=== PATIENT | male | born 1975 | race Caucasian/White ===

== ENCOUNTER 2021-12-15 15:26 | Inpatient (IN) | payer MEDICAID ==
[~2021-12-15] VITALS: Ht 175.3 cm; Wt 121.1 kg
--- NOTE | 2021-12-15 15:45 | NUR ---
DR GARCIA AT BEDSIDE FOR EVAL
--- NOTE | 2021-12-15 15:58 | NUR ---
COVID SWAB COLLECTED AND SENT TO LAB
[2021-12-15] MEDS ORDERED: IV NS 0.9% 1,000 ML BAG IV ONE (16:00)
[2021-12-15] MEDS ORDERED: VANCOMYCIN 1 GM in IV D5W 250 ML IV ONE (16:00)
[2021-12-15] MEDS ORDERED: PIPERACILLIN /TAZOBACTAM 3.375 G in IV D5W 50 ML IV ONE (16:00)
--- NOTE | 2021-12-15 16:00 | NUR ---
IV LINE ESTABLISHED ON LAC #20, BLOOD DRAWN AND SENT TO LAB
[2021-12-15 16:22] LABS: BASOPHILS # (AUTO) 0.1 K/uL (0.0-0.2); BASOPHILS % (AUTO) 0.4 % (0.0-2.0); EOSINOPHILS % (AUTO) 0.2 % (0.0-6.0); HEMATOCRIT 36 % (39-51); HEMOGLOBIN 12.1 g/dL (13.5-17.5); LYMPHOCYTES % (AUTO) 10.6 % (20.0-44.0); MEAN CORPUSCULAR HGB CONC 33 g/dl (31.0-36.0); MEAN CORPUSCULAR VOLUME 87 fL (80-96); MONOCYTES # (AUTO) 1.6 K/uL (0.1-1.30); MONOCYTES % (AUTO) 8.2 % (2.0-12.0); NEUTROPHILS # (AUTO) 15.4 K/uL (1.8-8.9); NEUTROPHILS % (AUTO) 80.6 % (43.0-81.0); PLATELET COUNT (AUTO) 315 K/uL (150-450); RED BLOOD CELL COUNT(AUTO) 4.17 MIL/uL (4.5-6.0); WHITE BLOOD COUNT (AUTO) 19.1 K/uL (4.3-11.0)
[2021-12-15] MEDS ORDERED: IOHEXOL-300 100 ML VIAL IV ONE (16:23)
[2021-12-15] MEDS ORDERED: IV NS 0.9% 250 ML IV ONE (16:23)
--- NOTE | 2021-12-15 16:32 | NUR ---
PT TAKEN TO RADIOLOGY
[2021-12-15 16:33] LABS: CALCIUM, SERUM 8.9 mg/dL (8.5-10.1); CREATININE 1.3 mg/dL (0.6-1.3); POTASSIUM 3.1 mmol/L (3.5-5.1)
[2021-12-15 16:39] LABS: ALBUMIN 3.2 g/dL (3.4-5.0); BILIRUBIN,DIRECT 0.3 mg/dL (0.0-0.2); TOTAL PROTEIN, SERUM 8.6 g/dL (6.4-8.2)
--- NOTE | 2021-12-15 16:49 | NUR ---
CALLED [facility], PAGED ROBERT BLANTON FOR ADMISSION
--- NOTE | 2021-12-15 18:26 | NUR ---
PT REPORT GIVEN TO BIBIANA GARNER
[2021-12-15] MEDS ORDERED: Z GUARD REMEDY 4 OZ OINT TP PRN (19:30)
[2021-12-15] MEDS ORDERED: ACETAMINOPHEN 325 MG TABLET PO PRN (19:30)
[2021-12-15] MEDS ORDERED: POTASSIUM CHLORIDE 20 MEQ TAB.PRT.SR PO ONE (19:30)
[2021-12-15] MEDS ORDERED: MORPHINE SULFATE INJ 4 MG/ML DISP.SYRIN IV PRN (19:30)
[2021-12-15] MEDS ORDERED: ONDANSETRON HCL/PF 4 MG/2 ML VIAL IVP PRN (19:30)
--- NOTE | 2021-12-15 19:30 | NUR ---
ADMISSION NOTES PT ARRIVED ON UNIT AT APPROXIMATELY 1930. AOx4, ABLE TO MAKE NEEDS KNOWN. ON RA AND TOLERATING WELL. NO SOB NOTED. NO S/SX OF RESPIRATORY DISTRESS NOTED. IV ACCESS IN LAC #20G RUNNING NS @ 75 ML/HR. PICTURE TAKEN OF RIGHT BUTTOCK. SAFETY PRECAUTIONS IN PLACE: BED IN LOWEST, LOCKED POSITION, SIDERAILS UP x2, AND BRAKES ON. TABLE AND CALL LIGHT WITHIN REACH. ALL NEEDS MET AT THIS TIME.
[2021-12-15] MEDS: IV NS 0.9% 1,000 ML IV PRN (19:59)
[2021-12-15 20:00] VITALS: BP 124/74
[2021-12-15] MEDS ORDERED: VANCOMYCIN HCL 0.75 GM in IV D5W 250 ML IV ONE (20:00)
--- NOTE | 2021-12-15 23:00 | NUR ---
RN NOTES GIRLFRIEND ARRIVED AND WAS CONCERNED THAT PT WAS "LOOPY." PT CONTINUES TO HAVE EPISODES OF CONFUSION AND FORGETFULNESS. PT ALSO PACES IN ROOM. WHEN ASKED IF PATIENT WAS ANXIOUS HE SAID "YES BUT I DO NOT WANT MEDICATION." CHARGE NURSE, ROMEO, MADE AWARE.
[2021-12-15] MEDS: PIPERACILLIN /TAZOBACTAM 3.375 G in IV D5W 50 ML IV SCH (23:51)
[2021-12-16] MEDS: PIPERACILLIN /TAZOBACTAM 3.375 G in IV D5W 50 ML IV SCH ×3 (05:40→17:11)
--- NOTE | 2021-12-16 06:10 | NUR ---
RN NOTES PATIENT SEEN PACING THROUGHOUT HALLWAYS. FORGETFUL.
[2021-12-16 06:53] LABS: BASOPHILS % (AUTO) 0.2 % (0.0-2.0); EOSINOPHILS % (AUTO) 0.6 % (0.0-6.0); HEMATOCRIT 35 % (39-51); HEMOGLOBIN 11.8 g/dL (13.5-17.5); LYMPHOCYTES # (AUTO) 1.7 K/uL (0.8-4.8); LYMPHOCYTES % (AUTO) 12.7 % (20.0-44.0); MEAN CORPUSCULAR HGB CONC 34 g/dl (31.0-36.0); MEAN CORPUSCULAR VOLUME 88 fL (80-96); MONOCYTES # (AUTO) 1.1 K/uL (0.1-1.30); MONOCYTES % (AUTO) 8.1 % (2.0-12.0); NEUTROPHILS # (AUTO) 10.6 K/uL (1.8-8.9); NEUTROPHILS % (AUTO) 78.4 % (43.0-81.0); PLATELET COUNT (AUTO) 341 K/uL (150-450); RED BLOOD CELL COUNT(AUTO) 4.02 MIL/uL (4.5-6.0); WHITE BLOOD COUNT (AUTO) 13.5 K/uL (4.3-11.0)
--- NOTE | 2021-12-16 07:00 | NUR ---
MS RN OPENING NOTES RECEIVED PATIENT AWAKE IN BED, ON ROOM AIR NO S/S OF RESPIRATORY DISTRESS. A/Ox4, ABLE TO MAKE NEEDS KNOWN. NO COMPLAINT OF PAIN OR DISCOMFORT. IV ACCESS L AC #20 G RUNNING NS @75 ML/HR. INTACT AND PATENT. CONTINENT, HAS BRP. AMBULATORY. SKIN IS INTACT. SAFETY MEASURES IN PLACE: BED LOCKED AND IN LOWEST POSITION, SIDE RAILS UP x2, CALL LIGHT WITHIN REACH, HOB ELEVATED. WILL CONTINUE TO MONITOR.
--- NOTE | 2021-12-16 07:04 | NUR ---
RN CLOSING NOTES PT IN BED, SITTING AT EDGE OF BED. AOx4, ABLE TO MAKE NEEDS KNOWN. ON RA AND TOLERATING WELL. NO SOB NOTED. NO S/SX OF RESPIRATORY DISTRESS NOTED. IV ACCESS IN LAC #20G RUNNING NS @ 75 ML/HR. PICTURE TAKEN OF RIGHT BUTTOCK. PT WAS SEEN PACING THROUGHOUT HALLS AND WAS ANXIOUS BUT DID NOT WANT MEDICATION. ALL NEEDS MET. PT KEPT CLEAN AND DRY. SAFETY PRECAUTIONS IN PLACE: BED IN LOWEST, LOCKED POSITION, SIDERAILS UP x2, AND BRAKES ON. TABLE AND CALL LIGHT WITHIN REACH. WILL ENDORSE TO ONCOMING SHIFT FOR SHEREEN.
[2021-12-16 07:45] LABS: ALBUMIN 3.1 g/dL (3.4-5.0); BILIRUBIN,TOTAL 0.8 mg/dL (0.2-1.0); CALCIUM, SERUM 8.9 mg/dL (8.5-10.1); CREATININE 1.2 mg/dL (0.6-1.3); MAGNESIUM 2.1 mg/dL (1.8-2.4); PHOSPHORUS 2.8 mg/dL (2.5-4.9); POTASSIUM 3.2 mmol/L (3.5-5.1); TOTAL PROTEIN, SERUM 8.5 g/dL (6.4-8.2)
[2021-12-16] MEDS: VANCOMYCIN 1.25 GM in IV D5W 250 ML IV SCH ×2 (07:59→20:24)
[2021-12-16] MEDS: POTASSIUM CHLORIDE 20 MEQ TAB.PRT.SR PO SCH ×2 (11:21→12:08)
[2021-12-16 11:29] VITALS: BP 148/97
[2021-12-16] MEDS ORDERED: LORAZEPAM INJ 2 MG/ML VIAL IV PRN (15:00)
--- NOTE | 2021-12-16 19:26 | NUR ---
MS RN CLOSING NOTES PATIENT AWAKE IN BED, STABLE ON ROOM AIR NO S/S OF RESPIRATORY DISTRESS. A/Ox3-4, ABLE TO MAKE NEEDS KNOWN, HAS EPISODES OF CONFUSION. NO COMPLAINT OF PAIN OR DISCOMFORT. IV ACCESS L AC #20 G RUNNING NS @75 ML/HR. INTACT AND PATENT. CONTINENT, HAS BRP. AMBULATORY. SKIN ISSUES R BUTTOCK ABSCESS. SAFETY MEASURES MAINTAINED: BED LOCKED AND IN LOWEST POSITION, SIDE RAILS UP x2, CALL LIGHT WITHIN REACH, HOB ELEVATED. WILL ENDORSE TO NEXT SHIFT ANY SHEREEN.
--- NOTE | 2021-12-16 19:57 | NUR ---
MS RN OPENING NOTES PATIENT AWAKE IN BED, STABLE ON ROOM AIR NO S/S OF RESPIRATORY DISTRESS. A/Ox3-4, ABLE TO MAKE NEEDS KNOWN, HAS EPISODES OF CONFUSION. NO COMPLAINT OF PAIN OR DISCOMFORT. IV ACCESS L AC #20 G RUNNING NS @75 ML/HR. INTACT AND PATENT. CONTINENT, HAS BRP. AMBULATORY. SKIN ISSUES R BUTTOCK ABSCESS. SAFETY MEASURES MAINTAINED: BED LOCKED AND IN LOWEST POSITION, SIDE RAILS UP x2, CALL LIGHT WITHIN REACH, HOB ELEVATED. SISTER AND GIRLFRIEND AT BEDSIDE AT THIS TIME.
[2021-12-16 20:00] VITALS: BP 121/64
--- NOTE | 2021-12-16 20:45 | NUR ---
rn note noted pt with redness at iv site removed iv catheter intact elevated arm offered pt ice pack pt refused. inserted new iv on the rfa #20g tolerated well.
[2021-12-17] MEDS: PIPERACILLIN /TAZOBACTAM 3.375 G in IV D5W 50 ML IV SCH ×5 (00:02→23:16)
--- NOTE | 2021-12-17 06:35 | NUR ---
MS RN OPENING NOTES PATIENT AWAKE IN BED, STABLE ON ROOM AIR NO S/S OF RESPIRATORY DISTRESS. A/Ox3-4, ABLE TO MAKE NEEDS KNOWN, HAS EPISODES OF CONFUSION. NO COMPLAINT OF PAIN OR DISCOMFORT. IV ACCESS RFA #20 G RUNNING NS @75 ML/HR. INTACT AND PATENT. CONTINENT, HAS BRP. AMBULATORY. SKIN ISSUES R BUTTOCK ABSCESS. PT NPO SINCE 2330 LAST NIGHT FOR PROCEDURE THIS MORNING. SAFETY MEASURES MAINTAINED: BED LOCKED AND IN LOWEST POSITION, SIDE RAILS UP x2, CALL LIGHT WITHIN REACH, HOB ELEVATED.
[2021-12-17] MEDS ORDERED: ANESTHESIA TRAY IN PYXIS 1 EA TRAY MC ONE ×2 (07:05→08:50)
[2021-12-17 07:17] LABS: BASOPHILS % (AUTO) 0.3 % (0.0-2.0); EOSINOPHILS % (AUTO) 2.3 % (0.0-6.0); HEMATOCRIT 35 % (39-51); HEMOGLOBIN 11.5 g/dL (13.5-17.5); LYMPHOCYTES # (AUTO) 1.2 K/uL (0.8-4.8); MEAN CORPUSCULAR HGB CONC 33 g/dl (31.0-36.0); MEAN CORPUSCULAR VOLUME 89 fL (80-96); MONOCYTES # (AUTO) 0.8 K/uL (0.1-1.30); MONOCYTES % (AUTO) 9.1 % (2.0-12.0); NEUTROPHILS # (AUTO) 6.8 K/uL (1.8-8.9); NEUTROPHILS % (AUTO) 75.3 % (43.0-81.0); PLATELET COUNT (AUTO) 326 K/uL (150-450); RED BLOOD CELL COUNT(AUTO) 3.94 MIL/uL (4.5-6.0)
[2021-12-17] MEDS ORDERED: FENTANYL PF 100MCG/2ML AMPUL ONE (07:17)
[2021-12-17] MEDS ORDERED: ROCURONIUM BROMIDE 50 MG/5 ML ONE (07:17)
[2021-12-17] MEDS ORDERED: BUPIVACAINE MPF W/EPI 0.25% 30 ML VIAL ONE (07:20)
--- NOTE | 2021-12-17 07:38 | NUR ---
ms rn patient not in the room, down to surgery of right buttock abcess.
[2021-12-17 07:59] LABS: CALCIUM, SERUM 8.9 mg/dL (8.5-10.1); CREATININE 1.1 mg/dL (0.6-1.3); POTASSIUM 3.6 mmol/L (3.5-5.1)
[2021-12-17] MEDS: VANCOMYCIN 1.25 GM in IV D5W 250 ML IV SCH ×2 (08:39→19:36)
--- NOTE | 2021-12-17 08:55 | NUR ---
ms rn came back from surgery,awake,alert,oriented x4,not in any distress, vs stable,sx site w/ dry dressing,no evidence of active bleeding at this time,denies pain ,all needs attended.
--- NOTE | 2021-12-17 14:00 | NUR ---
ms rn on bed, denies pain at this time.
[2021-12-17 16:00] VITALS: BP 117/67
--- NOTE | 2021-12-17 17:59 | NUR ---
ms rn walking around the room, denies pain at this time,all needs attended.
--- NOTE | 2021-12-17 19:30 | NUR ---
MS RN OPENING NOTES RECEIVED PATIENT ON BED AWAKE AND A/O X4. ON ROOM AIR TOLERATING WELL. NO SOB NOTED. NOT IN DISTRESS. WITH NO COMPLAINTS OF PAIN OR DISCOMFORT AT THIS TIME. WITH IV ACCESS AT LEFT AC G20 WITH IVF NS AT 75ML/HR INFUSING WELL. SAFETY MEASURES IN PLACED. CALL LIGHT WITHIN REACH. BED ON LOWEST LOCKED POSITION, SIDE RAILS UP X2. WILL CONTINUE TO MONITOR.
[2021-12-17 20:00] VITALS: BP 122/77
[2021-12-18] MEDS: PIPERACILLIN /TAZOBACTAM 3.375 G in IV D5W 50 ML IV SCH ×2 (05:10→11:38)
[2021-12-18] MEDS: IV NS 0.9% 1,000 ML IV PRN (06:14)
--- NOTE | 2021-12-18 06:34 | NUR ---
MS RN CLOSING NOTES PATIENT SITTING ON BED, AWAKE AND A/O X4. ON ROOM AIR TOLERATING WELL. NO SOB NOTED. NOT IN DISTRESS. WITH NO COMPLAINTS OF PAIN OR DISCOMFORT AT THIS TIME. WITH IV ACCESS AT LEFT AC G20 WITH IVF NS AT 75ML/HR INFUSING WELL. DUE MEDS GIVEN. SAFETY MEASURES IN PLACED. CALL LIGHT WITHIN REACH. BED ON LOWEST LOCKED POSITION, SIDE RAILS UP X2. ALL NEEDS ATTENDED. WILL ENDORSE TO NEXT SHIFT FOR SHEREEN.
--- NOTE | 2021-12-18 07:00 | NUR ---
MS RN OPENING NOTES PATIENT LAYING ON BED, A/O X 4, ABLE TO MAKE NEEDS KNOWN, TOLERATING WELL ON ROOM AIR WITH NO S/S RESPIRATORY DISTRESS. NO COMPLAINTS OF PAIN OR DISCOMFORT AT THIS TIME. L AC # 20 IV CLEAN, INTACT, AND INFUSING NS @ 75 ML/HR. SAFETY MEASURES IN PLACE: BED IN LOWEST LOCKED POSITION, SIDE RAILS UP X 2, CALL LIGHT WITHIN REACH. WILL CONTINUE TO MONITOR.
[2021-12-18 07:03] LABS: BASOPHILS % (AUTO) 0.1 % (0.0-2.0); EOSINOPHILS % (AUTO) 0.4 % (0.0-6.0); HEMATOCRIT 37 % (39-51); HEMOGLOBIN 12.2 g/dL (13.5-17.5); LYMPHOCYTES # (AUTO) 1.9 K/uL (0.8-4.8); LYMPHOCYTES % (AUTO) 16.5 % (20.0-44.0); MEAN CORPUSCULAR HGB CONC 33 g/dl (31.0-36.0); MEAN CORPUSCULAR VOLUME 90 fL (80-96); MONOCYTES # (AUTO) 0.8 K/uL (0.1-1.30); MONOCYTES % (AUTO) 6.6 % (2.0-12.0); NEUTROPHILS # (AUTO) 8.7 K/uL (1.8-8.9); NEUTROPHILS % (AUTO) 76.4 % (43.0-81.0); PLATELET COUNT (AUTO) 357 K/uL (150-450); RED BLOOD CELL COUNT(AUTO) 4.17 MIL/uL (4.5-6.0); WHITE BLOOD COUNT (AUTO) 11.4 K/uL (4.3-11.0)
[2021-12-18 07:28] LABS: CALCIUM, SERUM 8.9 mg/dL (8.5-10.1); CREATININE 1.2 mg/dL (0.6-1.3); MAGNESIUM 2.3 mg/dL (1.8-2.4)
[2021-12-18] MEDS: VANCOMYCIN 1.25 GM in IV D5W 250 ML IV SCH (08:29)
[2021-12-18 08:31] VITALS: BP 122/77
[2021-12-18] MEDS ORDERED: DOXY-326 PO (10:16)
--- NOTE | 2021-12-18 12:30 | NUR ---
MS MANAGER ED NOTES PATIENT MADE AWARE OF MD DISCHARGE ORDERS AND SIGNED MD DISCHARGE INSTRUCTIONS FORM. PATIENT VERBALIZED POSSESSION OF ALL BELONGINGS AND SIGNED BELONGINGS SHEET. PATIENT AND EDUCATED ON WOUND TREATMENT ORDER AND WOUND TREATMENT PERFORMED IN PRESENCE OF . SUPPLIES PROVIDED TO PATIENT AND FOR WOUND TREATMENT. IV LINE AND ID BAND REMOVED. PATIENT TRANSPORTED OFF OF UNIT VIA WHEELCHAIR ACCOMPANIED BY AND STABLE AT TIME OF DISCHARGE.
== END 2021-12-18 12:50 | disposition home or self-care (01) | DRG 383 ==
LOC: ER 15:51 → MED 17:51
PROVIDERS: ADMIT Nurse Practitioner Acute Care; ATTEND Nurse Practitioner Acute Care
PROC: 0HB8XZZ Excision of Buttock Skin, External Approach (ICD-10-PCS; principal; 2021-12-17)
DX: L03.317 Cellulitis of buttock (principal); G93.41 Metabolic encephalopathy; E87.1 Hypo-osmolality and hyponatremia; E87.6 Hypokalemia; L02.31 Cutaneous abscess of buttock; Z20.822 Contact with and (suspected) exposure to COVID-19; E66.01 Morbid (severe) obesity due to excess calories; Z68.39 Body mass index [BMI] 39.0-39.9, adult; K57.30 Diverticulosis of large intestine without perforation or abscess without bleeding
CPT/HCPCS: 36415; 71045-TC; 72193-TC; 80048-TC; 80053-TC; 80061-TC; 80076-TC; 80202-TC; 83605-TC; 83735-TC; 84100-TC; 85025-TC; 85730-TC; 87040-TC; 87070-TC; A4217; A6253; A6403; C9803; G0378; J0330; J1100; J2270; J2405; J2543; J2704; J3010; J3370; J3490; J7030; J7050; J7060; Q9967